=== PATIENT | male | born 1985 | race Caucasian/White ===

== ENCOUNTER 2019-09-09 07:10 | Emergency (ER) | payer SELFPAY ==
[~2019-09-09] VITALS: Ht 175.3 cm; Wt 83.5 kg
--- NOTE | 2019-09-09 07:21 | NUR ---
BIBSELF C/O LLQ ABD PAIN RADIATING TO LEFT FLANK AREA X2 DAYS. PT STATING HE SAW BLOOD IN HIS URINE. PALCED IN BED 3 ON MONITOR AND PULSE OX. AWATING MD FOR EVAL AND ORDERS. NO ACUTE DISTRESS NOTED. RR EVEN AND UNLABORED. VSS.
[2019-09-09] MEDS ORDERED: ONDANSETRON HCL/PF 4 MG/2 ML VIAL IVP ONE (07:30)
[2019-09-09] MEDS ORDERED: IV NS 0.9% 1,000 ML BAG IV ONE (07:30)
[2019-09-09] MEDS ORDERED: MORPHINE SULFATE INJ 2 MG/ML DISP.SYRIN IV ONE (07:30)
[2019-09-09] MEDS ORDERED: ONDANSETRON HCL/PF 4 MG/2 ML VIAL ONE (07:35)
[2019-09-09] MEDS ORDERED: MORPHINE SULFATE INJ 4 MG/ML DISP.SYRIN ONE (07:35)
--- NOTE | 2019-09-09 07:35 | NUR ---
IV LINE ESTABLISHED BLOOD DRAWN AND SENT TO LAB.
--- NOTE | 2019-09-09 07:42 | NUR ---
URINAL GIVEN BUT UNABLE TO PROVIDE URINE SPECIMEN THIS TIME.
[2019-09-09 07:46] LABS: BASOPHILS # (AUTO) 0.1 /CMM (0.0-0.2); BASOPHILS % (AUTO) 0.8 % (0.0-2.0); EOSINOPHILS % (AUTO) 5.3 % (0.0-6.0); HEMATOCRIT 48 % (39-51); HEMOGLOBIN 16.4 g/dL (13.5-17.5); LYMPHOCYTES # (AUTO) 4.2 /CMM (0.8-4.8); MEAN CORPUSCULAR HGB CONC 34 g/dl (31.0-36.0); MEAN CORPUSCULAR VOLUME 88 fL (80-96); MONOCYTES # (AUTO) 0.8 /CMM (0.1-1.30); MONOCYTES % (AUTO) 6.8 % (2.0-12.0); NEUTROPHILS # (AUTO) 5.4 /CMM (1.8-8.9); NEUTROPHILS % (AUTO) 49.1 % (43.0-81.0); PLATELET COUNT (AUTO) 283 /CMM (150-450); RED BLOOD CELL COUNT(AUTO) 5.51 MIL/uL (4.5-6.0); WHITE BLOOD COUNT (AUTO) 11.1 K/uL (4.3-11.0)
[2019-09-09 08:09] LABS: BILIRUBIN,DIRECT 0.1 mg/dL (0.0-0.2); BILIRUBIN,TOTAL 0.4 mg/dL (0.2-1.0); CALCIUM, SERUM 8.8 mg/dL (8.5-10.1); CREATININE 1.2 mg/dL (0.6-1.3); POTASSIUM 3.1 mmol/L (3.5-5.1); TOTAL PROTEIN, SERUM 7.3 g/dL (6.4-8.2)
[2019-09-09] MEDS ORDERED: KETOROLAC TROMETHAMINE INJ 30 MG/ML VIAL ONE (09:09)
[2019-09-09] MEDS ORDERED: KETOROLAC TROMETHAMINE INJ 30 MG/ML VIAL IV ONE (09:30)
--- NOTE | 2019-09-09 09:43 | NUR ---
IV removed. Catheter intact and site benign. Pressure and 4x4 applied to site. No bleeding noted. Patient discharged to home in stable condition. Written and verbal after care instructions given. Patient verbalizes understanding of instruction.
[2019-09-09 09:44] VITALS: BP 127/77
== END 2019-09-09 09:49 | disposition home or self-care (01) ==
LOC: ER 07:13
DX: N23 Unspecified renal colic (principal)
CPT/HCPCS: 36415; 74176; 80048; 80076; 83690; 85025; 96374; 96375; 99284; J1885; J2270; J2405; J7030

== ENCOUNTER 2019-09-11 01:28 | Emergency (ER) | payer SELFPAY ==
[~2019-09-11] VITALS: Ht 177.8 cm; Wt 83.9 kg
[2019-09-11 01:38] VITALS: BP 151/87
--- NOTE | 2019-09-11 01:41 | NUR ---
PT WAS BIBS FOR C/O L FLANK PAIN AND INABILITY TO URINATE FOR THE PAST THREE DAYS. PT WAS SEEN AT [facility] ER ON September AND WAS DIAGNOSED WITH RENAL STONE . PT A,BULATORY TO BED 9. WAS PLACED ON A MONITOR .VSS. WILL CONT TO MONITOR,
--- NOTE | 2019-09-11 01:57 | NUR ---
URINE COLLECTED AND SENT TO LAB
[2019-09-11 02:06] LABS: BASOPHILS # (AUTO) 0.1 /CMM (0.0-0.2); BASOPHILS % (AUTO) 0.7 % (0.0-2.0); EOSINOPHILS % (AUTO) 2.5 % (0.0-6.0); HEMATOCRIT 48 % (39-51); LYMPHOCYTES # (AUTO) 2.6 /CMM (0.8-4.8); LYMPHOCYTES % (AUTO) 21.1 % (20.0-44.0); MEAN CORPUSCULAR HGB CONC 33 g/dl (31.0-36.0); MEAN CORPUSCULAR VOLUME 88 fL (80-96); MONOCYTES # (AUTO) 0.9 /CMM (0.1-1.30); MONOCYTES % (AUTO) 7.6 % (2.0-12.0); NEUTROPHILS # (AUTO) 8.5 /CMM (1.8-8.9); NEUTROPHILS % (AUTO) 68.1 % (43.0-81.0); PLATELET COUNT (AUTO) 256 /CMM (150-450); RED BLOOD CELL COUNT(AUTO) 5.45 MIL/uL (4.5-6.0); WHITE BLOOD COUNT (AUTO) 12.4 K/uL (4.3-11.0)
[2019-09-11 02:11] LABS: APPEARANCE,URINE SL CLOUDY (CLEAR); BILIRUBIN,URINE NEGATIVE (NEGATIVE); BLOOD, URINE LARGE Ery/uL (NEGATIVE); COLOR,URINE YELLOW (YELLOW); KETONES,URINE NEGATIVE (NEGATIVE); LEUKOCYTE ESTERASE ,URINE TRACE (NEGATIVE); NITRITE, URINE NEGATIVE (NEGATIVE); PROTEIN,URINE TRACE mg/dl (NEGATIVE); UGLUCOSE NEGATIVE (NEGATIVE); UROBILINOGEN,URINE 0.2 EU/dL (0.2)
[2019-09-11 02:13] LABS: CREATININE 1.2 mg/dL (0.6-1.3); POTASSIUM 3.6 mmol/L (3.5-5.1)
[2019-09-11 02:22] LABS: BACTERIA,URINE Few /HPF (None Seen); RBC,URINE TOO NUMEROUS TO COUN /HPF (0-2); SQUAMOUS EPITHELIAL CELL,UR Rare /HPF (None Seen)
--- NOTE | 2019-09-11 02:58 | NUR ---
AT THE BED SIDE
--- NOTE | 2019-09-11 03:15 | NUR ---
Patient discharged to home in stable condition. Written and verbal after care instructions given. Patient verbalizes understanding of instruction.
== END 2019-09-11 03:34 | disposition home or self-care (01) ==
LOC: ER 01:29
DX: N23 Unspecified renal colic (principal)
CPT/HCPCS: 36415; 80048-TC; 81000-TC; 85025-TC; 87086-TC

== ENCOUNTER 2019-09-11 07:41 | Emergency (ER) | payer SELFPAY ==
[~2019-09-11] VITALS: Ht 177.8 cm; Wt 86.2 kg
[2019-09-11] MEDS ORDERED: IBUPROFEN 600 MG TABLET PO ONE ×2 (08:00→08:06)
[2019-09-11] MEDS ORDERED: HYDROCODONE/APAP 5/325MG 1 EACH TABLET PO ONE (08:00)
--- NOTE | 2019-09-11 08:00 | NUR ---
CAME IN FOR L FLANK PAIN, WAS DIAGNOSED W KIDNEY STONE LAST WEDNESDAY, SEEN EARLIER FOR PAIN. TO ER BED 9, PROVIDED W WARM BLANKET, DR LINN AT BEDSIDE FOR EVAL.
[2019-09-11] MEDS ORDERED: HYDROCODONE/APAP 5/325MG 1 EACH TABLET ONE (08:06)
--- NOTE | 2019-09-11 08:36 | NUR ---
FRIEND WILL BATTERY CHECKER PATIENT. ETA 30MIN
--- NOTE | 2019-09-11 09:32 | NUR ---
Patient discharged to home in stable condition. Patient picked up by friend. Written and verbal after care instructions given. Patient verbalizes understanding of instruction.
[2019-09-11 09:38] VITALS: BP 145/84
== END 2019-09-11 09:33 | disposition home or self-care (01) ==
LOC: ER 07:44
DX: N23 Unspecified renal colic (principal)